=== PATIENT | male | born 1995 | race Two or more races ===

== ENCOUNTER 2023-11-28 14:19 | Emergency (ER) | payer OTHER ==
[~2023-11-28] VITALS: Ht 177.8 cm; Wt 75.0 kg
[2023-11-28 14:59] VITALS: BP 117/64; PULSE 80; RESP 14; TEMP 98.2
[2023-11-28] MEDS ORDERED: HYDR-4808 PO (15:00)
[2023-11-28] MEDS ORDERED: BUPR1TAB45 SL (15:00)
[2023-11-28] MEDS ORDERED: IBUP-1554 PO (15:29)
[2023-11-28] MEDS ORDERED: ACET-66 PO (15:29)
[2023-11-28] MEDS: IBUPROFEN 600 MG TABLET PO ONE (15:43)
== END 2023-11-28 15:51 | disposition home or self-care (01) ==
LOC: EMS 14:21
DX: S46.911A Strain of unspecified muscle, fascia and tendon at shoulder and upper arm level, right arm, initial encounter (principal); X58.XXXA Exposure to other specified factors, initial encounter; Y93.89 Activity, other specified; Y92.89 Other specified places as the place of occurrence of the external cause; Y99.8 Other external cause status
CPT/HCPCS: 99283